=== PATIENT | male | born 1985 | race Caucasian/White ===

== ENCOUNTER 2022-06-02 09:53 | Emergency (ER) | payer SELFPAY ==
[~2022-06-02] VITALS: Ht 172.7 cm; Wt 60.0 kg
[2022-06-02 10:49] LABS: BASOPHILS % 0.5 % (0.0-2.0); EOSINOPHILS % 1.6 % (0.0-5.0); HEMATOCRIT. 41.2 % (42.0-52.0); HEMOGLOBIN. 13.8 g/dL (14.0-18.0); LYMPHOCYTES % 14.1 % (20.0-50.0); MEAN CORPUSCULAR HEMOGLOBIN 31.8 pg (28.0-32.0); MEAN PLATELET VOLUME 7.8 fl (7.4-10.4); MONOCYTES % 6.1 % (2.0-8.0); NEUTROPHILS % 77.7 % (40.0-76.0); PLATELET 221 x1000/uL (130-400); RED BLOOD CELL COUNT 4.33 mill/uL (4.7-6.1); RED CELL DISTRIBUTION WIDTH 13.5 % (11.6-14.6)
[2022-06-02 10:55] LABS: CHLORIDE 108 mEq/L (98-107)
[2022-06-02 11:02] LABS: ETHANOL BLOOD < 10 mg/dL
[2022-06-02] MEDS ORDERED: NALO4SPR BOTHNSTRLS (13:48)
[2022-06-02 14:43] VITALS: BP 108/76
== END 2022-06-02 14:44 | disposition home or self-care (01) ==
LOC: ER 09:53
DX: T65.91XA Toxic effect of unspecified substance, accidental (unintentional), initial encounter (principal); F17.200 Nicotine dependence, unspecified, uncomplicated; F15.10 Other stimulant abuse, uncomplicated; F12.10 Cannabis abuse, uncomplicated; I49.9 Cardiac arrhythmia, unspecified; Y92.9 Unspecified place or not applicable
CPT/HCPCS: 36415; 80053; 80307; 80320; 80329; 85025; 93005; 99284; G0480